=== PATIENT | male | born 1995 | race Caucasian/White ===

== ENCOUNTER 2020-07-16 16:21 | Emergency (ER) | payer OTHER ==
[~2020-07-16] VITALS: Ht 195.6 cm; Wt 68.2 kg
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
[2020-07-16] MEDS ORDERED: ACETAMINOPHEN 325 MG TAB PO ONE (17:35)
[2020-07-16] MEDS ORDERED: CYCL-707 PO (17:51)
[2020-07-16 17:55] VITALS: BP 130/85
== END 2020-07-16 17:59 | disposition home or self-care (01) ==
LOC: M ED 16:21
DX: S06.0X0A Concussion without loss of consciousness, initial encounter (principal); M54.2 Cervicalgia; W22.8XXA Striking against or struck by other objects, initial encounter; Y92.138 Other place on military base as the place of occurrence of the external cause; Y99.1 Military activity

== ENCOUNTER 2024-12-10 11:20 | Emergency (ER) | payer OTHER ==
[~2024-12-10] VITALS: Ht 167.6 cm; Wt 79.8 kg
[~2024-12-10 11:20] MED LIST: CYCL-707 PO
[2024-12-10 11:28] VITALS: TEMP 98.1
[2024-12-10 11:29] VITALS: BP 139/92; O2SAT 99
[2024-12-10] MEDS ORDERED: NAPR-885 PO (11:33)
[2024-12-10] MEDS ORDERED: METH-1165 PO (11:33)
[2024-12-10] MEDS: NAPROXEN 250 MG TAB PO ONE (11:36)
== END 2024-12-10 12:00 | disposition home or self-care (01) ==
LOC: M ED 11:20
DX: S46.811A Strain of other muscles, fascia and tendons at shoulder and upper arm level, right arm, initial encounter (principal); M62.838 Other muscle spasm; X50.0XXA Overexertion from strenuous movement or load, initial encounter; Y93.02 Activity, running; Y99.1 Military activity; Y92.9 Unspecified place or not applicable; Z79.1 Long term (current) use of non-steroidal anti-inflammatories (NSAID); Z79.899 Other long term (current) drug therapy